=== PATIENT | female | born 1935 | race African-American/Black ===

== ENCOUNTER 2018-03-07 11:34 | Emergency (ER) | payer OTHER, MEDICARE ==
[~2018-03-07] VITALS: Ht 167.6 cm; Wt 78.9 kg
[~2018-03-07 11:34] MED LIST: CIPRO500 M1 PO; CIPROFLOXACIN500 MG PO; COZAAR50 M1 PO; FLAG500 PO; FLAGYL500 MG PO; HYDROCHLOROTH12.5 M2 PO; LIPITOR20 M2 PO; NORVASC5 M1 PO; PRILOSEC 20MG C20 MG PO; SENOKOT NATURA8.6 MG PO; TIMOPTIC-XE5 M1 OPH; XALATAN2.5 ML OPH
[2018-03-07 12:15] LABS: ABSOLUTE BASOPHIL COUNT 0.1 /CUMM (0.0-0.2); ABSOLUTE EOSINOPHIL COUNT 0.2 /CUMM (0.0-0.7); ABSOLUTE GRANULOCYTE CT 5.1 /CUMM (1.4-6.5); ABSOLUTE LYMPH COUNT 2.1 /CUMM (1.2-3.4); ABSOLUTE MONOCYTE COUNT 0.8 /CUMM (0.10-0.60); BASOPHIL % 0.7 % (0.0-2.0); EOSINOPHIL % 2.8 % (0-5); GRANULOCYTE % 61.6 % (42.2-75.2); HEMATOCRIT 40.7 % (37-47); MEAN CORPUSCULAR HGB 28.7 PG (27.0-31.0); MEAN CORPUSCULAR HGB CONC 33.2 G/DL (33.0-37.0); MEAN CORPUSCULAR VOLUME 86.4 FL (81.0-99.0); MEAN PLATELET VOLUME 8.3 FL (7.4-10.4); PLATELET COUNT 256 /CUMM (130-400); RBC DISTRIBUTION WIDTH 14.4 % (11.5-14.5); RED BLOOD CELL CT 4.71 /CUMM (4.20-5.40); WHITE BLOOD CELL COUNT 8.4 /CUMM (4.8-10.8)
--- NOTE | 2018-03-07 12:26 | ED GENERAL ADULT ---
History of Present Illness General Chief Complaint: Abdominal Pain/Flank Pain Stated Complaint: ABD. PAIN ONGOING FOR MONTHS PER PT, HERE FOR SAME Source: patient Exam Limitations: no limitations Vital Signs & Intake/Output Vital Signs & Intake/Output Vital Signs Date Time Temp Pulse Resp B/P B/P Pulse O2 O2 Flow FiO2 Mean Ox Delivery Rate 03/07 1412 96.1 54 18 126/58 98 03/07 1138 96.4 67 15 128/78 98 Room Air Room Air Allergies Coded Allergies: Penicillins (Intermediate, HIVES 03/07/18) Reconcile Medications Amlodipine Besylate (Norvasc) 5 MG TABLET 1 TAB PO DAILY HEART (Reported) Atorvastatin Calcium (Lipitor) 20 MG TABLET 1 TAB PO DAILY CHOLESTEROL ( Reported) Ergocalciferol (Vitamin D2) (Vitamin D2) 50,000 UNIT CAPSULE 1 CAP PO QW VITAMIN SUPPORT (Reported) Hydrochlorothiazide 12.5 MG TABLET 1 TAB PO DAILY WATER RETENTION (Reported) Latanoprost (Xalatan) 0.005 % DROPS 1 GTT OPH QPM GLAUCOMA (Reported) Losartan Potassium (Cozaar) 50 MG TABLET 1 TAB PO DAILY HEART (Reported) Metformin HCl 500 MG TABLET 1 TAB PO DAILY DIABETES (Reported) Timolol Maleate (Timoptic-Xe) 0.5 % FRANK.GEL 1 GTT OPH QAM EYE (Reported) Triage Note: PT TO ED FOR C/C OF LOWER MID ABD PAIN THAT RADIATES TO R SIDE TAHT STARTED MONDAY. DENIES N/V/D, G/U SYMPTOMS. PAIN IS WORSE WHEN SITTING DOWN. Triage Nurses Notes Reviewed? yes HPI: Patient is an 82-year-old female with past medical history of diverticulitis and multiple other comorbidities as outlined below, and whose only abdominal surgery was a total abdominal hysterectomy, who presents today with left lower quadrant and suprapubic pain. She reports that the pain has been worsening over recent days and currently is rated as severe. She denies any nausea, vomiting, diarrhea, dysuria, hematuria, melena, hematochezia, headache, chest pain, dyspnea, fever, or other constitutional symptoms. Past History Travel History Traveled to [place] past 21 day No Medical History Any Pertinent Medical History? see below for history Neurological: NONE EENT: allergies, glaucoma Cardiovascular: hypertension, hyperlipidemia Respiratory: NONE Gastrointestinal: DIVERTICULITIS Hepatic: NONE Renal: NONE Musculoskeletal: osteoarthritis Psychiatric: NONE Endocrine: NONE, diabetes (TYPE 2) Blood Disorders: NONE Cancer(s): NONE INTERMODAL DISPATCHER/Reproductive: NONE History of MRSA: No History of VRE: No History of CDIFF: No Surgical History Surgical History: hysterectomy Psychosocial History Who do you live with Daughter Services at Home None What is your primary language Telugu Tobacco Use: Never used ETOH Use: denies use Illicit Drug Use: denies illicit drug use Family History Family History, If Any: FATHER FH: myocardial infarction MOTHER FH: myocardial infarction SISTER FH: diabetes mellitus SISTER FH: diabetes mellitus SISTER FH: diabetes mellitus Hx Contributory? No Review of Systems Review of Systems Constitutional: Reports: see HPI. EENTM: Reports: no symptoms. Respiratory: Reports: no symptoms. Cardiovascular: Reports: no symptoms. GI: Reports: see HPI, abdominal pain. Denies: diarrhea, distention, bowel incontinence, melena, nausea, changes in stool, vomiting. Genitourinary: Reports: see HPI. Denies: discharge, dysuria, frequency, hematuria, hesitation. Musculoskeletal: Reports: no symptoms. Skin: Reports: no symptoms. Neurological/Psychological: Reports: no symptoms. Hematologic/Endocrine: Reports: no symptoms. Immunologic/Allergic: Reports: no symptoms. All Other Systems: Reviewed and Negative Physical Exam Physical Exam General Appearance: well developed/nourished, no apparent distress, alert, mild distress Comments: HEENT: Inspection of the head reveals a normocephalic cranium with no signs of trauma. Ophtho: Extraocular muscles are intact and pupils are equal and reactive to light bilaterally with no afferent pupillary defect. The sclera are noninjected , and there is no obvious discharge. Neck: The trachea is midline, there is no obvious asymmetry or mass over the thyroid, and there is no midline cervical spine tenderness Respiratory: The lungs are clear and equal to auscultation bilaterally without wheezes, rales, or rhonchi. The patient exhibits no signs of labored breathing. Cardiac: Regular rhythm and non-tachycardic without appreciable murmurs on auscultation. No obvious JVD. GI: Examination of the abdomen reveals significant left lower quadrant and suprapubic tenderness to palpation. There is negative Doyle's sign, negative McBurney's point tenderness, negative Lacho sign, negative Day-Jin sign, and no signs of peritonitis whatsoever on percussion or deep palpation. The skin is intact with no sign of trauma or infection. : Deferred Neuro: The patient is oriented to person, place, time, and situation, with no obvious focal motor deficits. There were no sensory deficits, and the patient exhibit purposeful movement of all 4 extremities. Cranial nerves II through XII are intact, and gait is normal. Behavioral: Calm and cooperative Dermatologic: Dermatologic examination reveals no diffuse rashes or exanthems, no petechiae, no ecchymoses, and no other signs of erythema or infection. Core Measures ACS in differential dx? No CVA/TIA Diagnosis: No Sepsis Present: No Sepsis Focused Exam Completed? No Progress Differential Diagnoses I considered the following diagnoses in my evaluation of the patient: Diverticulitis, appendicitis, small bowel obstruction, peritonitis, UTI, pyelonephritis, among multiple other possibilities. Plan of Care: Orders Procedure Date/time Status URINALYSIS 03/07 113 Complete LACTIC ACID 03/07 1139 Complete COMPREHENSIVE METABOLIC PANEL 03/07 113 Complete CBC WITHOUT DIFFERENTIAL 03/07 1139 Complete Laboratory Tests 03/07/18 1439: Lactic Acid Cancelled 03/07/18 1318: Urine Color YEL, Urine Clarity CLEAR, Urine pH 6.0, Ur Specific [place] <= 1.005 , Urine Protein NEG, Urine Ketones NEG, Urine Nitrite NEG, Urine Bilirubin NEG, Urine Urobilinogen 0.2, Ur Leukocyte Esterase NEG, Ur Microscopic SEDIMENT EXAMINED, Urine RBC 1-3, Urine WBC 1-3 H, Ur Epithelial Cells FEW, Urine Bacteria FEW H, Urine Hemoglobin TRACE-INTACT, Urine Glucose NEG 03/07/18 1209: Anion Gap 14, Estimated GFR 48 L, BUN/Creatinine Ratio 22.7, Glucose 108 H, Lactic Acid 1.0, Calcium 9.5, Total Bilirubin 1.1, AST 29, ALT 28, Alkaline Phosphatase 74, Total Protein 7.6, Albumin 4.2, Globulin 3.4, Albumin/Globulin Ratio 1.2 03/07/18 1207: CBC w Diff NO MAN DIFF REQ, RBC 4.71, MCV 86.4, MCH 28.7, MCHC 33.2, RDW 14.4, MPV 8.3, Gran % 61.6, Lymphocytes % 25.4, Monocytes % 9.5 H, Eosinophils % 2.8, Basophils % 0.7, Absolute Granulocytes 5.1, Absolute Lymphocytes 2.1, Absolute Monocytes 0.8 H, Absolute Eosinophils 0.2, Absolute Basophils 0.1 Initial ED EKG: none Comments: Patient presented today with symptoms consistent with her prior episodes of diverticulitis, localized to the left lower quadrant. Given her advanced age and her significant tenderness, I obtained a CT scan to rule out perforation and abscess formation, and to valuate for potential other diagnoses. CT scan showed acute auscultated diverticulitis in the sigmoid colon as outlined below. Patient had no vomiting and is able to tolerate medication orally, so I prescribed ciprofloxacin and metronidazole to her pharmacy and she was discharged home in stable condition. She plans to follow-up with her primary physician for reassessment. She understands the need to return to the emergency department for any new or worsening symptoms including development of fever, vomiting, or other concerns. IMPRESSION: Acute uncomplicated diverticulitis in the sigmoid colon. DICTATED BY: Huey Lopez MD Departure Departure Time of Disposition: 1512 Disposition: HOME OR SELF CARE Condition: Stable Clinical Impression Primary Impression: Sigmoid diverticulitis Referrals: Ana Alonzo DO (PCP/Family) Additional Instructions: Please take the antibiotics we prescribed for the full 10 day course, until they are gone. Make an appointment with Dr. Alonzo for reassessment, and as always return to the emergency department in the meantime for any new or worsening symptoms. Departure Forms: Customer Survey General Discharge Information Prescriptions: Current Visit Scripts Metronidazole (Flagyl) 1 TAB PO FOUR TIMES A DAY #40 TAB Ciprofloxacin HCl (Cipro) 1 TAB PO BID #20 TAB Critical Care Note Critical Care Note Critical Care Time: non-applicable
[2018-03-07] MEDS ORDERED: METFORMIN HCL500 M3 PO (13:03)
[2018-03-07] MEDS ORDERED: VITAMIN D250000 UNIT PO (13:03)
--- NOTE | 2018-03-07 13:40 | CT SCAN REPORT ---
EXAMINATION: CT ABDOMEN AND PELVIS WITH CONTRAST CLINICAL INFORMATION: Left lower quadrant and suprapubic pain. Presented diagnosis of diverticulitis COMPARISON: 10/08/2017 TECHNIQUE: Multidetector volumetric imaging was performed of the abdomen and pelvis following IV administration of 94 mL of Optiray 320 intravenous contrast. Sagittal and coronal reformatted images were obtained on the technologist's workstation. DLP: 417 mGy-cm FINDINGS: LUNG BASES: Mild dependent atelectasis. LIVER, GALLBLADDER, AND BILIARY TREE: The liver is normal in size, shape, and attenuation. No focal hepatic lesion or biliary ductal dilatation is present. The gallbladder is unremarkable with no evidence of radiopaque gallstones, gallbladder wall thickening, or obvious pericholecystic inflammatory changes. PANCREAS: Unremarkable. SPLEEN: Unremarkable. ADRENAL GLANDS: Unremarkable. KIDNEYS AND URETERS: A small exophytic 8 mm water density cyst at the lateral margin of the interpolar region cortex of the right kidney is unchanged from prior. No suspicious renal lesions. Kidneys enhance symmetrically and are normal in size and contour. No hydronephrosis or nephrolithiasis. No perinephric stranding. Ureters are unremarkable. BLADDER: Unremarkable. GASTROINTESTINAL TRACT: Stomach, small bowel, and colon are normal in caliber. There is moderate to severe sigmoid diverticulosis. A diverticulum at the lateral/inferior margin of the sigmoid colon on image 50/103 of series 602 is inflamed with surrounding wall thickening and adjacent pericolonic fat stranding, consistent with acute diverticulitis. No perforation. No intraperitoneal free air or surrounding foci of extraluminal gas. Appendix is normal. No intraperitoneal free fluid or free air. ABDOMINAL WALL: Unremarkable LYMPH NODES: Normal. VASCULAR: Calcific atherosclerosis is present in the abdominal aorta and its branch vessels. No aneurysmal dilatation. PELVIC VISCERA: Unremarkable. OSSEOUS STRUCTURES: There is severe facet arthropathy in the lower lumbar spine with grade 1 anterolisthesis of L5 on S1 and L4 on L5. More mild multilevel degenerative disc disease is noted. There is moderate osteoarthritis in the hips. IMPRESSION: Acute uncomplicated diverticulitis in the sigmoid colon.
[2018-03-07 14:12] VITALS: BP 126/58
[2018-03-07] MEDS ORDERED: FLAGYL500 MG PO (15:18)
[2018-03-07] MEDS ORDERED: CIPRO500 M1 PO (15:18)
== END 2018-03-07 15:26 ==
LOC: ERH 11:34
PROVIDERS: Physician Assistant
DX: K57.92 Diverticulitis of intestine, part unspecified, without perforation or abscess without bleeding (principal)
CPT/HCPCS: 74177; 81001; 96374; J0131